=== PATIENT | female | born 1960 ===

== ENCOUNTER 2021-04-20 06:40 | Day surgery (SDC) | payer OTHER | END 2021-04-20 10:45 | disposition home or self-care (01) | LOC: AMB-ENDOS 06:40 | PROVIDERS: ATTEND Colon & Rectal Surgery | DX: K62.1 Rectal polyp (principal); Z20.822 Contact with and (suspected) exposure to COVID-19; Z12.11 Encounter for screening for malignant neoplasm of colon ==